=== PATIENT | female | born 1990 ===

== ENCOUNTER 2017-09-13 15:49 | Emergency (ER) | payer SELFPAY ==
[2017-09-13 16:21] VITALS: BP 112/52; PULSE 72; RESP 16; TEMP 98.2; O2SAT 99
[2017-09-13] MEDS ORDERED: Sodium Chloride 0.9% 1,000 ML IV STA (16:41)
--- NOTE | 2017-09-13 16:53 | ED PDOC ---
HPI: Abdomen Time Seen by Provider: 09/13/17 16:27 Chief Complaint (Nursing): GI Problem Chief Complaint (Provider): Abdominal pain, vomiting, diarrhea History Per: Patient History/Exam Limitations: no limitations Onset/Duration Of Symptoms: Days (1) Outside of [place] travel?: No Current Symptoms Are (Timing): Still Present Location Of Pain/Discomfort: Suprapubic Associated Symptoms: Nausea, Vomiting, Diarrhea Additional Complaint(s): 26yo female, A2 presents to ED with complaints of lower abdominal pain, nausea and vomiting since earlier today. Patient states she has had 7 episodes of vomiting yesterday and 6 episodes today; also states she had 2 episodes of diarrhea this morning.. Of note, patient also states she took a home test today which resulted positive. She denies any fever, chills, vaginal bleeding. No other complaints. : 3 Para: 0 Miscarriage: 2 Past Medical History Reviewed: Historical Data, Nursing Documentation, Vital Signs Vital Signs: Last Vital Signs Temp 98.2 F 09/13/17 16:18 Pulse 72 09/13/17 16:18 Resp 16 09/13/17 16:18 BP 112/52 L 09/13/17 16:18 Pulse Ox 99 09/13/17 18:44 - Medical History PMH: Anemia - Surgical History Surgical History: No Surg Hx - Family History Family History: States: No Known Family Hx - Home Medications Home Medications: Ambulatory Orders Medication Instructions Recorded Ibuprofen [Motrin] 600 mg PO Q6 #20 tab 08/04/17 Ondansetron ODT [Zofran ODT] 4 mg PO Q8 PRN #12 odt 09/13/17 - Allergies Allergies/Adverse Reactions: Allergies Allergy/AdvReac Type Severity Reaction Status Date / Time ketorolac [From Toradol] Allergy RASH Verified 08/04/17 15:35 Review of Systems ROS Statement: Except As Marked, All Systems Reviewed And Found Negative Constitutional: Negative for: Fever, Chills Gastrointestinal: Positive for: Vomiting, Abdominal Pain, Diarrhea Genitourinary Female: Negative for: Vaginal Bleeding Physical Exam - Reviewed Nursing Documentation Reviewed: Yes Vital Signs Reviewed: Yes - Physical Exam Appears: Positive for: Non-toxic, No Acute Distress Head Exam: Positive for: ATRAUMATIC, NORMAL INSPECTION, NORMOCEPHALIC Skin: Positive for: Normal Color Eye Exam: Positive for: Normal appearance Neck: Positive for: Supple Cardiovascular/Chest: Positive for: Regular Rate, Rhythm Respiratory: Positive for: Normal Breath Sounds. Negative for: Respiratory Distress Gastrointestinal/Abdominal: Positive for: Soft, Tenderness (mild suprapubic tenderness) Back: Positive for: Normal Inspection Extremity: Positive for: Normal ROM Neurologic/Psych: Positive for: Alert, Oriented - Laboratory Results Result Diagrams: 09/13/17 17:15 09/13/17 17:15 - ECG O2 Sat by Pulse Oximetry: 99 (RA) Pulse Ox Interpretation: Normal Medical Decision Making Medical Decision Making: Impression: Vomiting, diarrhea, Plan: -- CMP -- CBC -- Lipase -- Zofran 4 mg IV -- IV Fluids -- ED Urine Time: 1843 US OB Impression: Single intrauterine with estimated gestational age 5 weeks 6 days by gestational sac calculation. heart rate was not detected during this examination which may be secondary to early gestational age. Recommend clinical correlation including quantitative beta HCG and short-term follow-up ultrasound. Advise an anomaly screen at 16-18 weeks gestational age Scribe Attestation: Documented by Ene Concepcion, acting as a scribe for Kiarra Hemphill MD Provider Scribe Attestation: All medical record entries made by the Scribe were at my direction and personally dictated by me. I have reviewed the chart and agree that the record accurately reflects my personal performance of the history, physical exam, medical decision making, and the department course for this patient. I have also personally directed, reviewed, and agree with the discharge instructions and disposition. Disposition - Clinical Impression Clinical Impression: Gastroenteritis, Threatened - Patient ED Disposition Is Patient to be Admitted: No Doctor Will See Patient In The: Office Counseled Patient/Family Regarding: Studies Performed, Diagnosis, Need For Followup - Disposition Referrals: [facility] [Outside] Disposition: Routine/Home Disposition Time: 18:52 Condition: GOOD Additional Instructions: Follow up with your PCP in 3 days. Prescriptions: Ondansetron ODT [Zofran ODT] 4 mg PO Q8 PRN #12 odt PRN Reason: Nausea/Vomiting Instructions: Threatened Miscarriage (ED), Gastroenteritis (ED) Print Language: URDU
[2017-09-13 17:46] LABS: BASO # 0.1 K/uL (0.0-0.2); BASO % 0.7 % (0.0-2.0); EOS # 0.2 K/uL (0.0-0.7); EOS % 2.1 % (0.0-4.0); HEMATOCRIT 37.7 % (34.0-47.0); LYMPH # 1.9 K/uL (1.0-4.3); LYMPH % 17.8 % (20.0-40.0); MEAN CELL VOLUME 90.5 fl (81.0-99.0); MEAN CORPUSCULAR HGB CONC 33.2 g/dL (33.0-37.0); MEAN PLATELET VOLUME 9.8 fl (7.2-11.7); MONO # 0.6 K/uL (0.0-0.8); MONO % 5.5 % (0.0-10.0); NEUT # 8.1 K/uL (1.8-7.0); NEUT % 73.9 % (50.0-75.0); WHITE BLOOD COUNT 10.9 K/uL (4.8-10.8)
[2017-09-13 17:55] LABS: ALB/GLOB RATIO 1.2 (1.0-2.1); ALKALINE PHOSPHATASE 70 U/L (38-126); ALT/SGPT 36 U/L (9-52); AST/SGOT 28 U/L (14-36); BILIRUBIN,TOTAL 0.2 mg/dl (0.2-1.3); BLOOD UREA NITROGEN 15 mg/dl (7-17); CARBON DIOXIDE 29 mmol/L (22-30); CHLORIDE 104 mmol/L (98-107); GFR AFRICAN-AMERICAN > 60; GLUCOSE,RANDOM 111 mg/dL (65-105); LIPASE 114 U/L (23-300); POTASSIUM 3.8 MMOL/L (3.6-5.0); SODIUM 139 mmol/l (132-148); TOTAL PROTEIN 7.8 G/DL (6.3-8.2)
--- NOTE | 2017-09-13 18:36 | US ---
Indication: Suprapubic pain Comparison: Pelvis ultrasound performed 08/04/17 Technique: Ob transvaginal ultrasound Findings: The uterus measures approximately 7.9 x 5.5 x 5.6 cm. Retroverted. Cervix length measures approximately 3.7 cm. There is a single intrauterine fetus present. 3 mm yolk sac. The gestational sac measures 1.5 cm and is compatible with a gestational age of 5 weeks 6 days. The crown-rump length measures 0.2 cm and is compatible with a gestational age of 5 weeks 5 days. heart motion is not detected during this examination. The right ovary measures 3.2 x 1.7 x 2.9 cm. The left ovary measures 2.4 x 1.6 x 2.2 cm. Blood flow was demonstrated to both ovaries. Impression: Single intrauterine with estimated gestational age 5 weeks 6 days by gestational sac calculation. heart rate was not detected during this examination which may be secondary to early gestational age. Recommend clinical correlation including quantitative beta HCG and short-term follow-up ultrasound. Advise an anomaly screen at 16-18 weeks gestational age
== END 2017-09-13 19:21 | disposition home or self-care (01) ==
LOC: H.ER 15:49
DX: K52.9 Noninfective gastroenteritis and colitis, unspecified (principal); O21.9 Vomiting of pregnancy, unspecified; O20.0 Threatened abortion; Z3A.01 Less than 8 weeks gestation of pregnancy
CPT/HCPCS: 76817; 80053; 81025; 83690; 85025; 96374; 99283; J2405; J7040

== ENCOUNTER 2018-02-15 00:55 | Emergency (ER) | payer SELFPAY ==
[2018-02-15 01:26] VITALS: O2SAT 100
--- NOTE | 2018-02-15 01:36 | ED PDOC ---
HPI: SOB/CHF/COPD Time Seen by Provider: 02/15/18 01:25 Chief Complaint (Nursing): Respiratory Distress Chief Complaint (Provider): shortness of breath History Per: Patient History/Exam Limitations: no limitations Onset/Duration Of Symptoms: Hrs (3) Current Symptoms Are (Timing): Still Present Additional Complaint(s): 27 y/o female presents with complaints of shortness of breath x 3 hours. PAtient feels like she is "not breathing well" and thinks its because her blood pressure may be low. Associated mild headache. Denies fever, dizziness, nausea /vomiting, chest pain, palpitations, abdominal pain, leg pain/swelling, recent travel, ocp use, tobacco use. Past Medical History Reviewed: Historical Data, Nursing Documentation, Vital Signs Vital Signs: Last Vital Signs Temp 98.0 F 02/15/18 01:23 Pulse 76 02/15/18 01:23 Resp 18 02/15/18 01:23 BP 102/84 02/15/18 01:23 Pulse Ox 100 02/15/18 01:36 - Medical History PMH: Anemia - Surgical History Surgical History: No Surg Hx - Family History Family History: States: No Known Family Hx - Home Medications Home Medications: Ambulatory Orders Medication Instructions Recorded Ibuprofen [Motrin] 600 mg PO Q6 #20 tab 08/04/17 Ondansetron ODT [Zofran ODT] 4 mg PO Q8 PRN #12 odt 09/13/17 - Allergies Allergies/Adverse Reactions: Allergies Allergy/AdvReac Type Severity Reaction Status Date / Time ketorolac [From Toradol] Allergy RASH Verified 02/15/18 01:10 Review of Systems ROS Statement: Except As Marked, All Systems Reviewed And Found Negative Respiratory: Positive for: Shortness of Breath Physical Exam - Reviewed Nursing Documentation Reviewed: Yes Vital Signs Reviewed: Yes - Physical Exam Appears: Positive for: Well, Non-toxic, No Acute Distress Head Exam: Positive for: ATRAUMATIC, NORMAL INSPECTION, NORMOCEPHALIC Skin: Positive for: Normal Color Eye Exam: Positive for: Normal appearance ENT: Positive for: Normal ENT Inspection Cardiovascular/Chest: Positive for: Regular Rate, Rhythm Respiratory: Positive for: Normal Breath Sounds Gastrointestinal/Abdominal: Positive for: Normal Exam Back: Positive for: Normal Inspection Extremity: Positive for: Normal ROM Neurologic/Psych: Positive for: Alert, Oriented - Laboratory Results Result Diagrams: 02/15/18 01:46 02/15/18 01:46 - ECG ECG: Positive for: Viewed By Me (reviewed by ED attending) ECG Rhythm: Positive for: Sinus Rhythm O2 Sat by Pulse Oximetry: 100 Pulse Ox Interpretation: Normal - Radiology X-Ray: Viewed By Me X-Ray Interpretation: No Acute Disease - Progress ED Course And Treament: labs, ekg, chest xray On re-eval, patient resting comfortably; states symptoms resolved. Patient educated on findings, discharged with instructions to follow up PMD 2-3 days. Return precautions given Disposition - Clinical Impression Clinical Impression: Dyspnea - Patient ED Disposition Is Patient to be Admitted: No Counseled Patient/Family Regarding: Studies Performed, Diagnosis, Need For Followup - Disposition Referrals: [facility] [Outside] Disposition: Routine/Home Disposition Time: 02:48 Condition: IMPROVED Instructions: Shortness of Breath (Dyspnea) Forms: [facility] (Italian)
[2018-02-15 01:49] LABS: BASO # 0.1 K/uL (0.0-0.2); BASO % 1.3 % (0.0-2.0); EOS # 0.2 K/uL (0.0-0.7); EOS % 3.2 % (0.0-4.0); HEMOGLOBIN 12.2 g/dL (12.0-16.0); LYMPH # 2.1 K/uL (1.0-4.3); LYMPH % 28.5 % (20.0-40.0); MEAN CELL VOLUME 88.4 fl (81.0-99.0); MEAN CORPUSCULAR HEMOGLOBIN 29.8 pg (27.0-31.0); MEAN CORPUSCULAR HGB CONC 33.8 g/dL (33.0-37.0); MEAN PLATELET VOLUME 9.8 fl (7.2-11.7); MONO # 0.5 K/uL (0.0-0.8); MONO % 7.2 % (0.0-10.0); NEUT # 4.4 K/uL (1.8-7.0); NEUT % 59.8 % (50.0-75.0); RBC 4.08 Mil/uL (3.80-5.20); RED CELL DISTRIBUTION WIDTH 12.4 % (11.5-14.5); WHITE BLOOD COUNT 7.4 K/uL (4.8-10.8)
[2018-02-15 01:59] LABS: ALB/GLOB RATIO 1.1 (1.0-2.1); ALBUMIN 3.6 g/dL (3.5-5.0); ALT/SGPT 30 U/L (9-52); AST/SGOT 21 U/L (14-36); BLOOD UREA NITROGEN 18 mg/dl (7-17); CALCIUM 8.8 mg/dL (8.4-10.2); GFR AFRICAN-AMERICAN > 60; GFR NON-AFRICAN AMERICAN > 60
[2018-02-15 02:54] VITALS: BP 96/52; PULSE 47; RESP 15; TEMP 98.3
--- NOTE | 2018-02-15 09:18 | RAD ---
HISTORY: sob COMPARISON: No prior. TECHNIQUE: Chest PA and lateral FINDINGS: LUNGS: No active pulmonary disease. PLEURA: No significant pleural effusion identified. No pneumothorax apparent. CARDIOVASCULAR: Normal. OSSEOUS STRUCTURES: No significant abnormalities. VISUALIZED UPPER ABDOMEN: Normal. OTHER FINDINGS: None. IMPRESSION: No active disease.
--- NOTE | 2018-02-15 11:56 | CARD ---
APPROVED REPORT EKG Measurement Heart [id number] <Conclusion> Normal sinus rhythm Low voltage QRS Borderline ECG
== END 2018-02-15 03:29 | disposition home or self-care (01) ==
LOC: H.ER 00:55
DX: R06.00 Dyspnea, unspecified (principal)

== ENCOUNTER 2018-05-01 16:51 | Emergency (ER) | payer SELFPAY ==
--- NOTE | 2018-05-01 17:54 | ED PDOC ---
HPI: General Adult Time Seen by Provider: 05/01/18 17:47 Chief Complaint (Nursing): Palpitations Chief Complaint (Provider): palpitations History Per: Patient Additional Complaint(s): 27 year old female presents to ED with palpitations, dizziness and possible low blood pressure. Patient states she was at work when she started to feel weak. She states in the past her blood pressure has been low when she has felt this way. She denies any chest pain or shortness of breath but did feel as if her heart was racing. No associated drug use or alcohol. Patient denies recent travel. No fever or chills. PMD: none Past Medical History Reviewed: Historical Data, Nursing Documentation, Vital Signs Vital Signs: Last Vital Signs Temp 98.1 F 05/01/18 17:24 Pulse 76 05/01/18 17:24 Resp 18 05/01/18 17:24 BP 100/65 05/01/18 17:24 Pulse Ox 100 05/01/18 19:19 - Medical History PMH: Anemia - Surgical History Other surgeries: D&C due to miscarriage - Family History Family History: States: No Known Family Hx - Living Arrangements Living Arrangements: With Family - Social History Current smoker - smoking cessation education provided: No Alcohol: None Drugs: Denies - Home Medications Home Medications: Ambulatory Orders Medication Instructions Recorded Ibuprofen [Motrin] 600 mg PO Q6 #20 tab 08/04/17 Ondansetron ODT [Zofran ODT] 4 mg PO Q8 PRN #12 odt 09/13/17 - Allergies Allergies/Adverse Reactions: Allergies Allergy/AdvReac Type Severity Reaction Status Date / Time ketorolac [From Toradol] Allergy RASH Verified 05/01/18 17:24 Review of Systems ROS Statement: Except As Marked, All Systems Reviewed And Found Negative Constitutional: Positive for: Weakness. Negative for: Fever, Chills Cardiovascular: Positive for: Palpitations. Negative for: Chest Pain Respiratory: Negative for: Cough, Shortness of Breath Gastrointestinal: Negative for: Nausea, Vomiting Neurological: Positive for: Weakness, Dizziness. Negative for: Numbness, Incoordination, Change in Speech, Confusion, Seizures, Altered Mental Status, Headache Physical Exam - Reviewed Nursing Documentation Reviewed: Yes Vital Signs Reviewed: Yes - Physical Exam Appears: Positive for: Well, Non-toxic, No Acute Distress Skin: Positive for: Normal Color. Negative for: Rash Eye Exam: Positive for: Normal appearance Cardiovascular/Chest: Positive for: Regular Rate, Rhythm Respiratory: Positive for: Normal Breath Sounds. Negative for: Respiratory Distress Gastrointestinal/Abdominal: Positive for: Soft. Negative for: Tenderness, Distended, Guarding, Rebound Back: Positive for: Normal Inspection Extremity: Positive for: Normal ROM Neurologic/Psych: Positive for: Alert, Oriented - Laboratory Results Result Diagrams: 05/01/18 18:39 05/01/18 18:39 Urine POC: Negative Urine dip results: Negative for: Leukocyte Esterase, Blood, Nitrate, Ketones, Glucose, Bilirubin, Protein - ECG Interpretation Of ECG: Sinus bradycardia 59 beats per minute with no acute finding. Reviewed by PA and ED attending O2 Sat by Pulse Oximetry: 100 Pulse Ox Interpretation: Normal - Other Rad CXR X-Ray: Interpreted by Me, Viewed By Me X-Ray Interpretation: no acute finding Medical Decision Making Medical Decision Makin27 year old with weakness and palpitations Plan: EKG CXR IVF Urine test Urine dip CBC CMP Troponin D-dimer PO tylenol Patient reports feeling better after fluids and Tylenol dose. Patient aware of all diagnostic testing results, all questions answered. Advised fluids, rest and follow-up with primary doctor or return any time if acutely worse. Disposition - Clinical Impression Clinical Impression: Weakness - Patient ED Disposition Is Patient to be Admitted: No Counseled Patient/Family Regarding: Studies Performed, Diagnosis, Need For Followup - Disposition Referrals: [facility] [Outside] Disposition: Routine/Home Disposition Time: 19:20 Condition: STABLE Additional Instructions: Tylenol as needed for headache. Drink plenty of fluids and get plenty of rest. Follow-up with clinic in 2-3 days or return any time if acutely worse. Instructions: Weakness (ED) Forms: [facility] (Zambian), [facility] ED School/Work Excuse
[2018-05-01] MEDS ORDERED: Sodium Chloride 0.9% 1,000 ML IV STA (18:12)
[2018-05-01 19:02] LABS: BASO # 0.1 K/uL (0.0-0.2); BASO % 0.6 % (0.0-2.0); EOS # 0.2 K/uL (0.0-0.7); EOS % 2.8 % (0.0-4.0); HEMOGLOBIN 11.6 g/dL (12.0-16.0); LYMPH # 1.9 K/uL (1.0-4.3); LYMPH % 22.2 % (20.0-40.0); MEAN CELL VOLUME 90.2 fl (81.0-99.0); MEAN CORPUSCULAR HEMOGLOBIN 30.1 pg (27.0-31.0); MEAN CORPUSCULAR HGB CONC 33.3 g/dL (33.0-37.0); MEAN PLATELET VOLUME 10.1 fl (7.2-11.7); MONO # 0.5 K/uL (0.0-0.8); MONO % 5.8 % (0.0-10.0); NEUT % 68.6 % (50.0-75.0); RBC 3.86 Mil/uL (3.80-5.20); RED CELL DISTRIBUTION WIDTH 12.6 % (11.5-14.5); WHITE BLOOD COUNT 8.7 K/uL (4.8-10.8)
[2018-05-01 19:04] LABS: ALB/GLOB RATIO 1.2 (1.0-2.1); ALBUMIN 3.8 g/dL (3.5-5.0); ALT/SGPT 28 U/L (9-52); AST/SGOT 44 U/L (14-36); BLOOD UREA NITROGEN 20 mg/dl (7-17); GFR AFRICAN-AMERICAN > 60; GFR NON-AFRICAN AMERICAN > 60
--- NOTE | 2018-05-01 19:22 | RAD ---
Date of service: 05/01/2018 HISTORY: clearance COMPARISON: Chest radiographs 02/15/2018. FINDINGS: LUNGS: No active pulmonary disease. PLEURA: No significant pleural effusion identified, no pneumothorax apparent. CARDIOVASCULAR: Normal. OSSEOUS STRUCTURES: No significant abnormalities. VISUALIZED UPPER ABDOMEN: Normal. OTHER FINDINGS: None. IMPRESSION: No interval acute cardiopulmonary disease appreciated.
[2018-05-01 19:43] VITALS: BP 100/76; PULSE 64; RESP 17; TEMP 98.3
[2018-05-01 19:55] VITALS: O2SAT 100
== END 2018-05-01 19:49 | disposition home or self-care (01) ==
LOC: H.ER 16:51
DX: R53.1 Weakness (principal)
CPT/HCPCS: 71045; 80053; 81025; 84484; 85025; 85378; 99282; J7030

== ENCOUNTER 2018-06-30 14:20 | Emergency (ER) | payer SELFPAY ==
[2018-06-30 14:33] VITALS: BP 114/70; PULSE 66; RESP 18; TEMP 97.6; O2SAT 99
[2018-06-30] MEDS ORDERED: Sodium Chloride 0.9% 1,000 ML IV STA (14:49)
--- NOTE | 2018-06-30 15:11 | ED PDOC ---
HPI: Abdomen Time Seen by Provider: 06/30/18 14:32 Chief Complaint (Nursing): GI Problem Chief Complaint (Provider): GI Problem History Per: Patient History/Exam Limitations: no limitations Onset/Duration Of Symptoms: Hrs Current Symptoms Are (Timing): Still Present Associated Symptoms: Nausea, Vomiting. denies: Fever, Chills, Diarrhea, Back Pain, Urinary Symptoms Additional Complaint(s): Lida Christie is a 27 year old female with a past medical history of kidney stones who is presenting to the ED for evaluation of lower abdominal pain associated with 4 episodes of non-bloody non-bilious vomiting onset today after she woke up. Patient reports that in the past she had kidney stones that required laser and denies a history of UTIs as well as taking any medications prior to arrival. She adds that she took a test at home but couldnt tell if it was positive or negative. Patient denies any urinary symptoms, fevers, chills, vaginal discharge or bleeding, shortness of breath, back pain, flank pain, and cough/SOB. Of note, patient is on control and is unsure of LMP. PMD: none provided Abnormal Vaginal Bleeding: No Past Medical History Reviewed: Historical Data, Nursing Documentation, Vital Signs Vital Signs: Last Vital Signs Temp 97.6 F 06/30/18 14:31 Pulse 66 06/30/18 14:31 Resp 18 06/30/18 14:31 BP 114/70 06/30/18 14:31 Pulse Ox 99 06/30/18 14:31 - Medical History PMH: Kidney Stones - Surgical History Other surgeries: laser procedure for kidney stones - Family History Family History: States: Unknown Family Hx - Social History Current smoker - smoking cessation education provided: No Alcohol: Social Drugs: Denies - Home Medications Home Medications: Ambulatory Orders Medication Instructions Recorded Ibuprofen [Motrin] 600 mg PO Q6 #20 tab 08/04/17 Ondansetron ODT [Zofran ODT] 4 mg PO Q8 PRN #12 odt 09/13/17 21/Iron Fu/Folic Acid 1 each PO DAILY #60 tablet 06/30/18 [ Complete Caplet] - Allergies Allergies/Adverse Reactions: Allergies Allergy/AdvReac Type Severity Reaction Status Date / Time ketorolac [From Toradol] Allergy RASH Verified 06/30/18 14:31 Review of Systems ROS Statement: Except As Marked, All Systems Reviewed And Found Negative Constitutional: Negative for: Fever, Chills Respiratory: Negative for: Cough, Shortness of Breath Gastrointestinal: Positive for: Nausea, Vomiting, Abdominal Pain Genitourinary Female: Negative for: Vaginal Discharge, Vaginal Bleeding, Other (urinary symptoms) Musculoskeletal: Negative for: Back Pain Physical Exam - Reviewed Nursing Documentation Reviewed: Yes Vital Signs Reviewed: Yes - Physical Exam Comments: GENERAL APPEARANCE: Patient is awake, alert, oriented x 3, in no acute distress. Resting comfortably. SKIN: Warm, dry; (-) cyanosis. EYES: (-) conjunctival pallor, (-) scleral icterus. ENMT: Mucous membranes moist. Airway patent, (-) stridor. NECK: Supple, FROM CHEST AND RESPIRATORY: (-) rales, (-) rhonchi, (-) wheezes; breath sounds equal bilaterally. Respirations even and nonlabored. HEART AND CARDIOVASCULAR: (-) irregularity ABDOMEN AND GI: Soft, bowel sounds active x4 (-) distention (+) mild suprapubic tenderness. (-) guarding, (-) rebound, (-) palpable masses, (-) CVA tenderness. EXTREMITIES: (-) deformity NEURO AND PSYCH: Mental status as above; (-) focal findings. Gait: steady. Speech: clear. (-) facial asymmetry (-) aphasia - Laboratory Results Result Diagrams: 06/30/18 15:14 06/30/18 15:14 - ECG O2 Sat by Pulse Oximetry: 99 (RA) Pulse Ox Interpretation: Normal Medical Decision Making Medical Decision Making: Time: 14:51 Impression: Abdominal Pain, Vomiting Plan: --Beta-HCG, Quantitative --CMP --Lipase --ED Urine --CBC --Chlamydia/GC RNA, TMA --IV Fluids --Tylenol 650 mg pO --Zofran 4 mg IVP --Urine culture --Urinalysis 1525 U/A reviewed (-) hematuria (-) nitrate (-) leukocyte Upreg: negative 1600 CBC and CMP unremarkable. On re-evaluation, patient with persistent suprapubic pain. Transvaginal U/S ordered. 1614 Beta-HCG was 119.46. Patient states she has been twice before: had a miscarriage and an . 1700 Patient reports resolution of nausea and is requesting food tray at this time. Pending U/S evaluation. 1747 Patient in ultrasound. 1829 Patient resting comfortably. Pending U/S report. Patient was able to tolerate PO intake without any difficulty. 1914 U/S demonstrates a 2mm cystic structure in the endometrial canal compatible with a gestational sac. 1.5cm hemorrhagic left corpus lutheum cyst. On re-evaluation, patient reports improvement of symptoms. On exam, patient remains AAOx3, in no acute distress. Lungs clear to auscultation, cardiac RRR, abdomen soft and nontender, repeat neuro exam shows no focal findings. Vitals stable. Lab/Diagnostic results d/w the patient in great detail. Diagnosis of abdominal pain in first trimester of , nausea and vomiting d/w the patient. Based on history, exam and diagnostic results, plan will be for outpatient follow up with OBGYN. Patient instructed to follow-up with pmd / referral provided / the clinic in 1- 2 days without fail. Advised to take medication as prescribed. Return to the emergency room at any time for any new or worsening symptoms. Patient states she fully agrees with and understands discharge instructions. States that she agrees with the plan and disposition. Verbalized and repeated discharge instructions and plan. I have given the patient opportunity to ask any additional questions. Scribe Attestation: Documented by Heather Liang, acting as a scribe for Kathe Gallegos PA-C. Provider Scribe Attestation: All medical record entries made by the Scribe were at my direction and personally dictated by me. I have reviewed the chart and agree that the record accurately reflects my personal performance of the history, physical exam, medical decision making, and the department course for this patient. I have also personally directed, reviewed, and agree with the discharge instructions and disposition. Disposition - Clinical Impression Clinical Impression: Abdominal pain during in first trimester, Nausea and vomiting, Positive blood test - Patient ED Disposition Is Patient to be Admitted: No Counseled Patient/Family Regarding: Studies Performed, Diagnosis, Need For Followup, Rx Given - Disposition Referrals: [facility] [Outside] [facility] [Outside] Disposition: Routine/Home Disposition Time: 19:18 Condition: STABLE Additional Instructions: The emergency medical care you received today was directed at your acute symptoms. If you were prescribed any medication, please fill it and take as directed. It may take several days for your symptoms to resolve. Return to the Emergency Department if your symptoms worsen, do not improve, or if you have any other problems. Please contact your doctor in 2 days for re-evaluation and follow up / or call one of the physicians/clinics you have been referred to that are listed on the Patient Visit Information form that is included in your discharge packet. Bring any paperwork you were given at discharge with you along with any medications you are taking to your follow up visit. Our treatment cannot replace ongoing medical care by a primary care provider (PCP) outside of the emergency department. Prescriptions: 21/Iron Fu/Folic Acid [ Complete Caplet] 1 each PO DAILY #60 tablet Instructions: Acute Abdomen (Belly Pain), Nausea and Vomiting of , Symptoms, - The First Month, - The Second Month, - The Third Month Forms: [employer] (Croatian) Print Language: ISRAELI - POA Present On Arrival: None Results - Lab Results Lab Results: 06/30/18 06/30/18 06/30/18 15:14 15:14 15:14 WBC RBC Hgb Hct MCV MCH MCHC RDW Plt Count MPV Neut % (Auto) Lymph % (Auto) [place] % (Auto) Eos % (Auto) Baso % (Auto) Neut # (Auto) Lymph # (Auto) [place] # (Auto) Eos # (Auto) Baso # (Auto) Sodium 139 Potassium 3.8 Chloride 103 Carbon Dioxide 26 Anion Gap 14 BUN 13 Creatinine 0.8 Est GFR ( Amer) > 60 Est GFR (Non-Af Amer) > 60 Random Glucose 106 H Calcium 9.7 Total Bilirubin 0.2 AST 33 ALT 31 Alkaline Phosphatase 58 Total Protein 7.7 Albumin 4.1 Globulin 3.6 Albumin/Globulin Ratio 1.2 Lipase 86 Beta HCG, Quant 119.46 Urine Color Yellow Urine Clarity Cloudy Urine pH 6.0 Ur Specific [place] 1.006 Urine Protein Negative Urine Glucose (UA) Neg Urine Ketones Negative Urine Blood Negative Urine Nitrate Negative Urine Bilirubin Negative Urine Urobilinogen 0.2-1.0 Ur Leukocyte Esterase Neg Urine RBC (Auto) 2 Urine Microscopic WBC 1 Ur Squamous Epith Cells 14 H Urine Bacteria Rare 06/30/18 15:14 WBC 7.7 RBC 4.11 Hgb 12.2 Hct 36.7 MCV 89.4 MCH 29.8 MCHC 33.3 RDW 12.9 Plt Count 268 MPV 10.2 Neut % (Auto) 67.6 Lymph % (Auto) 23.3 [place] % (Auto) 6.4 Eos % (Auto) 1.9 Baso % (Auto) 0.8 Neut # (Auto) 5.2 Lymph # (Auto) 1.8 [place] # (Auto) 0.5 Eos # (Auto) 0.2 Baso # (Auto) 0.1 Sodium Potassium Chloride Carbon Dioxide Anion Gap BUN Creatinine Est GFR ( Amer) Est GFR (Non-Af Amer) Random Glucose Calcium Total Bilirubin AST ALT Alkaline Phosphatase Total Protein Albumin Globulin Albumin/Globulin Ratio Lipase Beta HCG, Quant Urine Color Urine Clarity Urine pH Ur Specific [place] Urine Protein Urine Glucose (UA) Urine Ketones Urine Blood Urine Nitrate Urine Bilirubin Urine Urobilinogen Ur Leukocyte Esterase Urine RBC (Auto) Urine Microscopic WBC Ur Squamous Epith Cells Urine Bacteria
[2018-06-30 15:23] LABS: SQUAMOUS EPITHIAL 14 /hpf (0-5); URINE BACTERIA RARE (<OCC); URINE BILIRUBIN NEGATIVE (NEGATIVE); URINE CLARITY CLOUDY (Clear); URINE COLOR YELLOW (YELLOW); URINE GLUCOSE (UA) NEG (Normal); URINE LEUKOCYTE ESTERASE NEG Leu/uL (Negative); URINE PROTEIN NEGATIVE (NEGATIVE); URINE UROBILINOGEN 0.2-1.0 mg/dL (0.2-1.0)
[2018-06-30 15:24] LABS: URINE BLOOD NEGATIVE (NEGATIVE)
[2018-06-30 15:43] LABS: BASO # 0.1 K/uL (0.0-0.2); BASO % 0.8 % (0.0-2.0); EOS # 0.2 K/uL (0.0-0.7); EOS % 1.9 % (0.0-4.0); HEMOGLOBIN 12.2 g/dL (12.0-16.0); LYMPH # 1.8 K/uL (1.0-4.3); LYMPH % 23.3 % (20.0-40.0); MEAN CELL VOLUME 89.4 fl (81.0-99.0); MEAN CORPUSCULAR HEMOGLOBIN 29.8 pg (27.0-31.0); MEAN CORPUSCULAR HGB CONC 33.3 g/dL (33.0-37.0); MEAN PLATELET VOLUME 10.2 fl (7.2-11.7); MONO # 0.5 K/uL (0.0-0.8); MONO % 6.4 % (0.0-10.0); NEUT # 5.2 K/uL (1.8-7.0); NEUT % 67.6 % (50.0-75.0); NRBC % 0.1 % (0.0-0.0); RBC 4.11 Mil/uL (3.80-5.20); RED CELL DISTRIBUTION WIDTH 12.9 % (11.5-14.5); WHITE BLOOD COUNT 7.7 K/uL (4.8-10.8)
[2018-06-30 15:47] LABS: ALB/GLOB RATIO 1.2 (1.0-2.1); ALBUMIN 4.1 g/dL (3.5-5.0); ALT/SGPT 31 U/L (9-52); AST/SGOT 33 U/L (14-36); BLOOD UREA NITROGEN 13 mg/dl (7-17); CALCIUM 9.7 mg/dL (8.4-10.2); GFR NON-AFRICAN AMERICAN > 60; LIPASE 86 U/L (23-300)
--- NOTE | 2018-07-01 08:44 | US ---
Date of service: 06/30/2018 PROCEDURE: OB Pelvic Ultrasound HISTORY: lower abdominal pain LMP: 05/25/2018 COMPARISON: Pelvic ultrasound dated 09/13/2017 FINDINGS: UTERUS: Uterus measures 6.3 x 3.8 x 5.2 cm. Retroverted. Normal in size and appearance. Small cystic structure in the endometrium measuring 2 mm which may represent a gestational sac. CERVIX: Measures 3.0 cm. Long and closed. No cervical abnormality seen. RIGHT OVARY: Measures 2.4 x 1.5 x 1.4 cm. No mass lesion. Normal flow. LEFT OVARY: Measures 3.8 x 1.9 x 1.9 cm. 1.5 x 1.5 x 1.3 cm corpus luteum. Normal flow. FREE FLUID: Small amount of free fluid. OTHER FINDINGS: None. IMPRESSION: Tiny 2 mm cystic structure in the endometrium which may represent a gestational sac. Findings may represent early normal/abnormal with ectopic not excluded. Close clinical follow-up with serial pelvic sonography and serum beta HCG levels is recommended.
== END 2018-06-30 19:31 | disposition home or self-care (01) ==
LOC: H.ER 14:20
DX: O26.91 Pregnancy related conditions, unspecified, first trimester (principal); R10.2 Pelvic and perineal pain; O21.0 Mild hyperemesis gravidarum
CPT/HCPCS: 76817; 80053; 81003; 81025; 83690; 84702; 85025; 87086; 87491; 87591; 96374; 99284; J2405; J7030

== ENCOUNTER 2018-09-26 22:51 | Emergency (ER) | payer OTHER ==
[2018-09-26 23:01] VITALS: BP 103/55; PULSE 63; RESP 18; TEMP 98.6; O2SAT 100
[2018-09-26] MEDS ORDERED: Sodium Chloride 0.9% 1,000 ML IV STA (23:27)
--- NOTE | 2018-09-26 23:30 | ED PDOC ---
HPI: Abdomen Time Seen by Provider: 09/26/18 23:14 Chief Complaint (Nursing): Female Genitourinary Chief Complaint (Provider): flank pain History Per: Patient History/Exam Limitations: no limitations Onset/Duration Of Symptoms: Days (2), Waxing/Waning Current Symptoms Are (Timing): Still Present Location Of Pain/Discomfort: Other (bilateral flank) Associated Symptoms: Nausea, Urinary Symptoms Additional Complaint(s): 27 y/o female presents for evaluation of bilateral flank pain x 2 days. Associated dysuria and nausea today. Denies fever, vomiting, chest pain, shortness of breath, palpitations, changes in bowel movements, hematuria, vaginal bleeding/discharge. Ibuprofen taken 4 hours prior to arrival. Past Medical History Reviewed: Historical Data, Nursing Documentation, Vital Signs Vital Signs: Last Vital Signs Temp 98.6 F 09/26/18 22:57 Pulse 63 09/26/18 22:57 Resp 18 09/26/18 22:57 BP 103/55 L 09/26/18 22:57 Pulse Ox 100 09/26/18 22:57 - Medical History PMH: Anemia, Kidney Stones - Surgical History Surgical History: No Surg Hx - Family History Family History: States: Unknown Family Hx - Living Arrangements Living Arrangements: With Family - Home Medications Home Medications: Ambulatory Orders Medication Instructions Recorded Ibuprofen [Motrin] 600 mg PO Q6 #20 tab 08/04/17 Ondansetron ODT [Zofran ODT] 4 mg PO Q8 PRN #12 odt 09/13/17 21/Iron Fu/Folic Acid 1 each PO DAILY #60 tablet 06/30/18 [ Complete Caplet] - Allergies Allergies/Adverse Reactions: Allergies Allergy/AdvReac Type Severity Reaction Status Date / Time ketorolac [From Toradol] Allergy dyskinesia Verified 09/26/18 22:57 Review of Systems ROS Statement: Except As Marked, All Systems Reviewed And Found Negative Gastrointestinal: Positive for: Nausea, Abdominal Pain Genitourinary Female: Positive for: Dysuria Physical Exam - Reviewed Nursing Documentation Reviewed: Yes Vital Signs Reviewed: Yes - Physical Exam Appears: Positive for: Well, Non-toxic, No Acute Distress Head Exam: Positive for: ATRAUMATIC, NORMAL INSPECTION, NORMOCEPHALIC Skin: Positive for: Normal Color Eye Exam: Positive for: Normal appearance ENT: Positive for: Normal ENT Inspection Cardiovascular/Chest: Positive for: Regular Rate, Rhythm Respiratory: Positive for: Normal Breath Sounds Gastrointestinal/Abdominal: Positive for: Bowel Sounds, Soft, Tenderness (bilateral flank, suprapubic) Back: Positive for: R CVA Tenderness. Negative for: L CVA Tenderness Extremity: Positive for: Normal ROM Neurologic/Psych: Positive for: Alert, Oriented (x3) - Laboratory Results Result Diagrams: 09/26/18 23:38 09/26/18 23:38 - ECG O2 Sat by Pulse Oximetry: 100 - Progress ED Course And Treament: -upreg -udip -urinalysis -urine c&s -cbc -cmp -ct renal protocol -IV NS bolus -IV zofran -PO tramadol CT SCAN OF THE ABDOMEN AND PELVIS WITHOUT ORAL OR IV CONTRAST. CLINICAL INDICATION: Left flank pain. TECHNIQUE: Axial and reformatted sagittal and coronal images of the abdomen pelvis obtained without IV contrast administration. COMPARISON: None. FINDINGS: The visualized lung bases are unremarkable. Normal unenhanced liver. Normal gallbladder and extrahepatic biliary system. Normal unenhanced spleen. Normal pancreas. Normal bilateral adrenal glands. Normal size of the right kidney. There is no right renal mass. There are no right renal calculi. There is no right hydronephrosis. Normal visualized right ureter. Normal size of the left kidney. There is no left renal mass. There are no left renal calculi. There is no left hydronephrosis. Normal visualized left ureter. Normal visualized stomach. Normal small intestine. Normal colon. The appendix is visualized and appears normal. There is no demonstrated peritoneal fluid. Normal abdominal aorta. Normal inferior vena cava. Normal retroperitoneum. Mild diffuse thickening of the urinary bladder. There is no pelvic mass lesion or lymphadenopathy. There is no pelvic fluid. Normal abdominal wall. Normal osseous structures. IMPRESSION: Mild diffuse thickening of the bladder, probably mild cystitis. Patient educated on findings, states she currently has no urinary symptoms and would like to wait for c&s report before starting antibiotics. Encouraged increase fluid intake. Ibuprofen PRN pain. Follow up PMD within 2-3 days Return precautions given Disposition - Clinical Impression Clinical Impression: Flank pain - Patient ED Disposition Is Patient to be Admitted: No Counseled Patient/Family Regarding: Studies Performed, Diagnosis, Need For Followup, Rx Given - Disposition Disposition: Routine/Home Disposition Time: :26 Condition: IMPROVED Instructions: Flank Pain Forms: [employer] (Estonian) Print Language: NIUEAN
[2018-09-26 23:46] LABS: BASO # 0.1 K/uL (0.0-0.2); BASO % 1.1 % (0.0-2.0); EOS # 0.2 K/uL (0.0-0.7); EOS % 2.8 % (0.0-4.0); HEMOGLOBIN 11.7 g/dL (12.0-16.0); LYMPH # 2.3 K/uL (1.0-4.3); LYMPH % 28.4 % (20.0-40.0); MEAN CELL VOLUME 89.8 fl (81.0-99.0); MEAN CORPUSCULAR HEMOGLOBIN 29.3 pg (27.0-31.0); MEAN CORPUSCULAR HGB CONC 32.7 g/dL (33.0-37.0); MEAN PLATELET VOLUME 10.4 fl (7.2-11.7); MONO # 0.7 K/uL (0.0-0.8); MONO % 8.1 % (0.0-10.0); NEUT # 4.9 K/uL (1.8-7.0); NEUT % 59.6 % (50.0-75.0); NRBC % 0.1 % (0.0-0.0); RBC 3.97 Mil/uL (3.80-5.20); RED CELL DISTRIBUTION WIDTH 12.9 % (11.5-14.5); WHITE BLOOD COUNT 8.2 K/uL (4.8-10.8)
[2018-09-26 23:50] LABS: SQUAMOUS EPITHIAL 8 /hpf (0-5); URINE BILIRUBIN NEGATIVE (NEGATIVE); URINE BLOOD SMALL (NEGATIVE); URINE CLARITY CLOUDY (Clear); URINE COLOR YELLOW (YELLOW); URINE GLUCOSE (UA) NEG (NEGATIVE); URINE LEUKOCYTE ESTERASE NEG Leu/uL (Negative); URINE PROTEIN NEGATIVE (NEGATIVE); URINE UROBILINOGEN 0.2-1.0 mg/dL (0.2-1.0)
[2018-09-26 23:56] LABS: ALB/GLOB RATIO 1.2 (1.0-2.1); ALT/SGPT 28 U/L (9-52); AST/SGOT 30 U/L (14-36); BLOOD UREA NITROGEN 23 mg/dl (7-17); CALCIUM 9.4 mg/dL (8.4-10.2); GFR NON-AFRICAN AMERICAN > 60
--- NOTE | 2018-09-27 12:44 | CT ---
Date of service: 09/27/2018 PROCEDURE: CT Abdomen and Pelvis without intravenous contrast HISTORY: flank pain COMPARISON: None. TECHNIQUE: CT scan of the abdomen and pelvis was performed without administration of intravenous contrast. Oral contrast was not administered. Coronal and sagittal reformatted images were obtained. . Radiation dose: Total exam DLP = 299.44 mGy-cm. This CT exam was performed using one or more of the following dose reduction techniques: Automated exposure control, adjustment of the mA and/or kV according to patient size, and/or use of iterative reconstruction technique. FINDINGS: LOWER THORAX: The visualized lungs are clear. LIVER: Normal in size. No intrahepatic ductal dilatation. GALLBLADDER AND BILE DUCTS: No calcified gallstones. No biliary dilatation PANCREAS: Normal in size. No ductal dilatation. SPLEEN: Normal in size. ADRENALS: Normal in size. No discrete nodule. KIDNEYS AND URETERS: Normal in size without nephrolithiasis. No hydronephrosis. VASCULATURE: No aortic aneurysm. No aortic atherosclerotic calcification or mural plaque present. BOWEL: The small bowel loops are normal in caliber. There is moderate amount of stool in the colon. No bowel dilatation or wall thickening. No bowel obstruction. APPENDIX: Normal appendix. PERITONEUM: No free fluid. No free air. LYMPH NODES: No enlarged lymph nodes. BLADDER: Well distended and grossly normal in appearance. REPRODUCTIVE: The uterus is normal in size BONES: No acute fracture. OTHER FINDINGS: None. IMPRESSION: No acute abdominal or pelvic abnormality. Constipation. No bowel obstruction. A preliminary report was provided by [facility].
== END 2018-09-27 02:00 | disposition home or self-care (01) ==
LOC: H.ER 22:51
DX: R10.9 Unspecified abdominal pain (principal); Z87.442 Personal history of urinary calculi
CPT/HCPCS: 74176; 80053; 81003; 81025; 85025; 87086; 99284; J2405; J7030

== ENCOUNTER 2018-11-29 07:54 | Emergency (ER) | payer OTHER, SELFPAY ==
[2018-11-29 07:58] VITALS: BP 108/67; PULSE 57; RESP 18; TEMP 98.1; O2SAT 99
--- NOTE | 2018-11-29 08:40 | ED PDOC ---
HPI: Female Pain Time Seen by Provider: 11/29/18 08:06 Chief Complaint (Nursing): Female Genitourinary Chief Complaint (Provider): Dysuria History Per: Patient History/Exam Limitations: no limitations Onset/Duration Of Symptoms: Hrs Current Symptoms Are (Timing): Still Present Severity: Mild Quality Of Discomfort: "Pain" Associated Symptoms: Urinary Symptoms. denies: Fever, Chills, Nausea, Vomiting, Diarrhea, Loss Of Appetite, Back Pain, Chest Pain, Constipation Additional Complaint(s): 28yo female, history of kidney stones, comes to ER reporting urinary urgency and dysuria since this morning. She also reports associated suprapubic abdominal pain. Patient denies any associated lower back pain, hematuria, and states this is the first instance of such symptoms. She offers no additional medical complaints. PMD: [facility] Past Medical History Reviewed: Historical Data, Nursing Documentation, Vital Signs Vital Signs: Last Vital Signs Temp 98.1 F 11/29/18 07:56 Pulse 57 L 11/29/18 07:56 Resp 18 11/29/18 07:56 BP 108/67 11/29/18 07:56 Pulse Ox 99 11/29/18 07:56 - Medical History PMH: Anemia, Kidney Stones - Surgical History Surgical History: No Surg Hx - Family History Family History: States: Unknown Family Hx - Home Medications Home Medications: Ambulatory Orders Medication Instructions Recorded Ibuprofen [Motrin] 600 mg PO Q6 #20 tab 08/04/17 Ondansetron ODT [Zofran ODT] 4 mg PO Q8 PRN #12 odt 09/13/17 21/Iron Fu/Folic Acid 1 each PO DAILY #60 tablet 06/30/18 [ Complete Caplet] Nitrofurantoin Macrocrystals 100 mg PO BID #10 cap 11/29/18 [Macrobid] Phenazopyridine HCl [Pyridium] 100 mg PO BID PRN 5 Days tab 11/29/18 - Allergies Allergies/Adverse Reactions: Allergies Allergy/AdvReac Type Severity Reaction Status Date / Time ketorolac [From Toradol] Allergy dyskinesia Verified 09/26/18 22:57 Review of Systems ROS Statement: Except As Marked, All Systems Reviewed And Found Negative Constitutional: Negative for: Fever, Chills Cardiovascular: Negative for: Chest Pain Respiratory: Negative for: Shortness of Breath Gastrointestinal: Positive for: Abdominal Pain (suprapubic) Genitourinary Female: Positive for: Dysuria, Frequency. Negative for: Hematuria Musculoskeletal: Negative for: Back Pain Neurological: Negative for: Weakness, Numbness Physical Exam - Reviewed Nursing Documentation Reviewed: Yes Vital Signs Reviewed: Yes - Physical Exam Appears: Positive for: Non-toxic, No Acute Distress Head Exam: Positive for: ATRAUMATIC, NORMAL INSPECTION, NORMOCEPHALIC Skin: Positive for: Normal Color Eye Exam: Positive for: EOMI, PERRL Neck: Positive for: Normal, Supple Cardiovascular/Chest: Positive for: Regular Rate, Rhythm Respiratory: Positive for: Normal Breath Sounds Pulses-Radial (L): 2+ Pulses-Radial (R): 2+ Gastrointestinal/Abdominal: Positive for: Soft, Tenderness (mild suprapubic tenderness). Negative for: Guarding, Rebound Back: Positive for: Normal Inspection. Negative for: L CVA Tenderness, R CVA Tenderness Extremity: Positive for: Normal ROM Neurologic/Psych: Positive for: Alert, Oriented. Negative for: Motor/Sensory Deficits - ECG O2 Sat by Pulse Oximetry: 99 (RA) Pulse Ox Interpretation: Normal Medical Decision Making Medical Decision Making: Impression: Suprapubic pain, frequency and urgency; likely UTI Plan: -- UDip -- Tylenol 650 0840 UDip reviewed, positive for leukocytes Scribe Attestation: Documented by Ene Concepcion acting as a scribe for Flaco Adorno MD Provider Attestation: All medical record entries made by the Scribe were at my direction and personally dictated by me. I have reviewed the chart and agree that the record accurately reflects my personal performance of the history, physical exam, medical decision making, and the department course for this patient. I have also personally directed, reviewed, and agree with the discharge instructions and disposition. Disposition - Clinical Impression Clinical Impression: Urinary tract infection - Disposition Referrals: [facility] [Outside] - 12/04/18 Additional Instructions: Return if not better in 3 days. Prescriptions: Nitrofurantoin Macrocrystals [Macrobid] 100 mg PO BID #10 cap Phenazopyridine HCl [Pyridium] 100 mg PO BID PRN 5 Days tab PRN Reason: Bladder Spasm Instructions: Urinary Tract Infections in Adults Print Language: KHMER
== END 2018-11-29 08:52 | disposition home or self-care (01) ==
LOC: H.ER 07:54
DX: N39.0 Urinary tract infection, site not specified (principal)

== ENCOUNTER 2018-12-02 12:25 | Emergency (ER) | payer SELFPAY ==
[2018-12-02 12:34] VITALS: RESP 18; TEMP 98.3; O2SAT 99
[2018-12-02] MEDS ORDERED: Tmp-Smz 800 mg-160 mg DS Tab PO STA (13:02)
[2018-12-02] MEDS ORDERED: Tmp-Smz 800 mg-160 mg DS Tab ONE (13:10)
--- NOTE | 2018-12-02 13:18 | ED PDOC ---
HPI: Back Time Seen by Provider: 12/02/18 12:52 Chief Complaint (Nursing): Back Pain Chief Complaint (Provider): Back Pain History Per: Patient History/Exam Limitations: no limitations Onset/Duration Of Symptoms: Days Current Symptoms Are (Timing): Still Present Additional Complaint(s): Patient is a 28 y/o female with a PMHx of anemia, kidney stones, and chronic kidney disease who presents to the ED for evaluation of left-sided flank and persistent suprapubic pain ongoing for the past couple of days. In addition, patient complains of urinary discomfort. Patient denies fever, chills, nausea, and vomiting. Patient was recently seen in the ED with UTI symptoms and was discharged with a prescription for Pyridium and Macrobid. 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 Of note, patient reports she took a test at home and it was positive. On a side note, patient is allergic to Toradol but not to Aleve or Motrin. PCP: None Provided Past Medical History Reviewed: Historical Data, Nursing Documentation, Vital Signs Vital Signs: Last Vital Signs Temp 98.3 F 12/02/18 12:30 Pulse 88 12/02/18 12:30 Resp 18 12/02/18 12:30 BP Pulse Ox 99 12/02/18 12:30 - Medical History PMH: Anemia, Kidney Stones, Chronic Kidney Disease - Surgical History Surgical History: No Surg Hx - Family History Family History: States: Unknown Family Hx - Home Medications Home Medications: Ambulatory Orders Medication Instructions Recorded Ibuprofen [Motrin] 600 mg PO Q6 #20 tab 08/04/17 Ondansetron ODT [Zofran ODT] 4 mg PO Q8 PRN #12 odt 09/13/17 21/Iron Fu/Folic Acid 1 each PO DAILY #60 tablet 06/30/18 [ Complete Caplet] Nitrofurantoin Macrocrystals 100 mg PO BID #10 cap 11/29/18 [Macrobid] Phenazopyridine HCl [Pyridium] 100 mg PO BID PRN 5 Days tab 11/29/18 Sulfamethoxazole/Trimethoprim 1 tab PO BID #14 tab 12/02/18 [Bactrim DS 800 mg-160 mg] - Allergies Allergies/Adverse Reactions: Allergies Allergy/AdvReac Type Severity Reaction Status Date / Time ketorolac [From Toradol] Allergy dyskinesia Verified 09/26/18 22:57 Review of Systems ROS Statement: Except As Marked, All Systems Reviewed And Found Negative Constitutional: Negative for: Fever, Chills Gastrointestinal: Positive for: Abdominal Pain (Lower). Negative for: Nausea, Vomiting Genitourinary Female: Positive for: Other (Urinary Discomfort) Musculoskeletal: Positive for: Other (Left-sided Flank Pain) Physical Exam - Reviewed Nursing Documentation Reviewed: Yes Vital Signs Reviewed: Yes - Physical Exam Appears: Positive for: Non-toxic, No Acute Distress Head Exam: Positive for: ATRAUMATIC, NORMAL INSPECTION, NORMOCEPHALIC Skin: Positive for: Normal Color, Warm, Dry Eye Exam: Positive for: EOMI, Normal appearance, PERRL Neck: Positive for: Normal, Painless ROM, Supple Cardiovascular/Chest: Positive for: Regular Rate, Rhythm. Negative for: Murmur Respiratory: Positive for: Normal Breath Sounds. Negative for: Respiratory Distress Gastrointestinal/Abdominal: Positive for: Tenderness (Suprapubic) Back: Positive for: Other (Left-sided Back and Lower, Middle Sacral Point Tenderness) Extremity: Positive for: Normal ROM. Negative for: Pedal Edema, Deformity Neurologic/Psych: Positive for: Alert, Oriented. Negative for: Motor/Sensory Deficits - ECG O2 Sat by Pulse Oximetry: 99 (RA) Pulse Ox Interpretation: Normal Medical Decision Making Medical Decision Making: Time: 1302 Impression: UTI Plan: Bactrim 1 tab PO Tylenol 650 mg PO - Urine dip shows trace leukocytes. - Negative Test. - Discharge the patient with a prescription for new antibiotics that are more affordable. Scribe Attestation: Documented by Troy Chan, acting as a scribe for Rosalva Munoz MD. Provider Scribe Attestation: All medical record entries made by the Scribe were at my direction and per sonally dictated by me. I have reviewed the chart and agree that the record accurately reflects my personal performance of the history, physical exam, medical decision making, and the department course for this patient. I have also personally directed, reviewed, and agree with the discharge instructions and disposition. Disposition - Clinical Impression Clinical Impression: UTI (urinary tract infection) - Patient ED Disposition Is Patient to be Admitted: No Doctor Will See Patient In The: Office Counseled Patient/Family Regarding: Diagnosis, Need For Followup - Disposition Referrals: [facility] [Outside] [facility] [Outside] [facility] [Outside] Disposition: Routine/Home Disposition Time: 13:15 Condition: STABLE Prescriptions: Sulfamethoxazole/Trimethoprim [Bactrim DS 800 mg-160 mg] 1 tab PO BID #14 tab Instructions: Urinary Tract Infections in Adults Forms: [employer] (Sri Lankan) - POA Present On Arrival: None
[2018-12-02 13:57] VITALS: BP 100/69; PULSE 82
== END 2018-12-02 13:48 | disposition home or self-care (01) ==
LOC: H.ER 12:25
DX: N39.0 Urinary tract infection, site not specified (principal); N18.9 Chronic kidney disease, unspecified; Z87.442 Personal history of urinary calculi

== ENCOUNTER 2019-01-30 00:22 | Emergency (ER) | payer SELFPAY ==
[2019-01-30 00:51] VITALS: TEMP 98.5
[2019-01-30] MEDS ORDERED: Albuterol 0.083% Inhal Sol (2.5 mg/3 mL) UD INH STA (01:00)
--- NOTE | 2019-01-30 01:02 | ED PDOC ---
HPI: Chest Pain Time Seen by Provider: 01/30/19 01:00 Chief Complaint (Nursing): Chest Pain Chief Complaint (Provider): cp History Per: Patient (28 y/o female here with difficulty breathing associated with cp x 2 days. Denies any cough/fever/chills. Not on any medications. denies any smoking hx.) Past Medical History Reviewed: Historical Data, Nursing Documentation, Vital Signs Vital Signs: Last Vital Signs Temp 98.5 F 01/30/19 00:40 Pulse 65 01/30/19 00:40 Resp 17 01/30/19 00:40 BP 98/68 L 01/30/19 00:40 Pulse Ox 100 01/30/19 00:40 Primary Care Provider: Alysia Briseno - Medical History PMH: Anemia, Kidney Stones, Chronic Kidney Disease - Family History Family History: States: Unknown Family Hx - Home Medications Home Medications: Ambulatory Orders Medication Instructions Recorded Ibuprofen [Motrin] 600 mg PO Q6 #20 tab 08/04/17 Ondansetron ODT [Zofran ODT] 4 mg PO Q8 PRN #12 odt 09/13/17 21/Iron Fu/Folic Acid 1 each PO DAILY #60 tablet 06/30/18 [ Complete Caplet] Nitrofurantoin Macrocrystals 100 mg PO BID #10 cap 11/29/18 [Macrobid] Phenazopyridine HCl [Pyridium] 100 mg PO BID PRN 5 Days tab 11/29/18 Sulfamethoxazole/Trimethoprim 1 tab PO BID #14 tab 12/02/18 [Bactrim DS 800 mg-160 mg] Albuterol HFA [Ventolin HFA 90 2 puff IH [id number] PRN #1 inh 01/30/19 mcg/actuation (8 g)] - Allergies Allergies/Adverse Reactions: Allergies Allergy/AdvReac Type Severity Reaction Status Date / Time ketorolac [From Toradol] Allergy dyskinesia Verified 01/30/19 01:09 Review of Systems ROS Statement: Except As Marked, All Systems Reviewed And Found Negative Physical Exam - Reviewed Nursing Documentation Reviewed: Yes Vital Signs Reviewed: Yes - Physical Exam Appears: Positive for: Well, Non-toxic, No Acute Distress Head Exam: Positive for: ATRAUMATIC, NORMAL INSPECTION, NORMOCEPHALIC Skin: Positive for: Normal Color, Warm, DRY Eye Exam: Positive for: EOMI, Normal appearance, PERRL ENT: Positive for: Normal ENT Inspection Neck: Positive for: Normal, Painless ROM Cardiovascular/Chest: Positive for: Regular Rate, Rhythm Respiratory: Positive for: CNT, Normal Breath Sounds Gastrointestinal/Abdominal: Positive for: Normal Exam, Soft Back: Positive for: Normal Inspection Extremity: Positive for: Normal ROM Neurological/Psych: Positive for: Awake, Alert, Normal Tone - Laboratory Results Result Diagrams: 01/30/19 01:20 01/30/19 01:20 Urine POC: Negative - ECG O2 Sat by Pulse Oximetry: 100 - Progress ED Course And Treament: CXR: NAD EKG: NSR 62 BPM NO ECTOPY NO ACUTE CHANGES ALBUTEROL NEBX 1 DOSE Disposition - Clinical Impression Clinical Impression: Shortness of breath - Patient ED Disposition Is Patient to be Admitted: No - Disposition Referrals: [facility] [Outside] Disposition: Routine/Home Disposition Time: 02:04 Condition: FAIR Prescriptions: Albuterol HFA [Ventolin HFA 90 mcg/actuation (8 g)] 2 puff IH [id number] PRN #1 inh PRN Reason: Shortness Of Breath Instructions: Shortness of Breath (Dyspnea) (DC) Print Language: MALAY
[2019-01-30] MEDS ORDERED: Albuterol 0.083% Inhal Sol (2.5 mg/3 mL) UD ONE (01:08)
[2019-01-30 01:23] LABS: BASO # 0.1 K/uL (0.0-0.2); BASO % 1.4 % (0.0-2.0); EOS # 0.3 K/uL (0.0-0.7); EOS % 3.3 % (0.0-4.0); HEMOGLOBIN 11.7 g/dL (12.0-16.0); LYMPH # 2.4 K/uL (1.0-4.3); LYMPH % 28.5 % (20.0-40.0); MEAN CELL VOLUME 89.6 fl (81.0-99.0); MEAN CORPUSCULAR HEMOGLOBIN 29.7 pg (27.0-31.0); MEAN CORPUSCULAR HGB CONC 33.1 g/dL (33.0-37.0); MONO # 0.7 K/uL (0.0-0.8); NEUT # 4.9 K/uL (1.8-7.0); NEUT % 58.8 % (50.0-75.0); NRBC % 0.1 % (0.0-0.0); RBC 3.96 Mil/uL (3.80-5.20); WHITE BLOOD COUNT 8.4 K/uL (4.8-10.8)
[2019-01-30 01:32] LABS: ALB/GLOB RATIO 1.4 (1.0-2.1); ALBUMIN 4.2 g/dL (3.5-5.0); ALT/SGPT 23 U/L (9-52); AST/SGOT 34 U/L (14-36); BLOOD UREA NITROGEN 24 mg/dl (7-17); CALCIUM 9.2 mg/dL (8.4-10.2); GFR NON-AFRICAN AMERICAN > 60
[2019-01-30 02:14] VITALS: BP 103/61; PULSE 61; RESP 18
[2019-01-30 02:15] VITALS: O2SAT 100
--- NOTE | 2019-01-30 07:51 | RAD ---
Date of service: 01/30/2019 HISTORY: routine COMPARISON: 05/01/2018 TECHNIQUE: Chest PA and lateral views FINDINGS: LUNGS: No active pulmonary disease. PLEURA: No significant pleural effusion identified. No pneumothorax apparent. CARDIOVASCULAR: No aortic atherosclerotic calcification present. Normal cardiac size. No pulmonary vascular congestion. OSSEOUS STRUCTURES: Minimal upper rightward thoracic convexity hree suggested. VISUALIZED UPPER ABDOMEN: Normal. OTHER FINDINGS: None. IMPRESSION: No active disease. No interval pathology noted.
--- NOTE | 2019-01-30 10:22 | CARD ---
APPROVED REPORT Date of service: 01/30/2019 EKG Measurement Heart [id number] <Conclusion> Normal sinus rhythm Normal ECG
== END 2019-01-30 02:25 | disposition home or self-care (01) ==
LOC: H.ER 00:22
DX: R06.02 Shortness of breath (principal)